=== PATIENT | male | born 1960 | race Hispanic/Latino ===

== ENCOUNTER 2017-12-22 15:34 | Emergency (ER) | payer OTHER ==
[2017-12-22] MEDS ORDERED: TORADOL IM ONE (16:08)
--- NOTE | 2017-12-22 17:03 | Emergency Department Report ---
ED Upper Extremity Inj HPI - General Chief Complaint: Extremity Problem,Nontraumatic Stated Complaint: LEFT ELBOW SWOLLEN Time Seen by Provider: 12/22/17 16:05 Source: patient Mode of arrival: Ambulatory Limitations: No Limitations - History of Present Illness Initial Comments: 57-year-old male with no significant past medical history presented to the hospital complaining of left elbow pain and swelling 6 days. Pain is 10/10 intensity, constant, worse with movement and palpation and greatest in the lateral part of the elbow. Patient states he woke up with the pain. 2 weeks prior he follow off a ladder landing on his left side and causing skin injury to left hand but did not have any left elbow pain at the time. No complaints of fever or more recent trauma. Denies previous history of gout or other joint discomfort. - Related Data Previous Rx's Medication Instructions Recorded Last Taken Type HYDROcodone/APAP 10-325 [[place] 1 each PO Q8H PRN #20 tablet 12/22/17 Unknown Rx 10-325 mg TAB] Ibuprofen [Motrin] 800 mg PO Q8HR PRN #30 tablet 12/22/17 Unknown Rx Allergies Allergy/AdvReac Type Severity Reaction Status Date / Time codeine Allergy Unknown Verified 08/11/13 02:01 ED Review of Systems ROS: Stated complaint: LEFT ELBOW SWOLLEN Other details as noted in HPI Comment: All other systems reviewed and negative ED Past Medical Hx - Past Medical History Previous Medical History?: No Additional medical history: Tetanus status up to date - Surgical History Past Surgical History?: Yes Hx Appendectomy: Yes Additional Surgical History: hernia repair, tonsillectomy - Social History Smoking Status: Current Every Day Smoker Substance Use Type: None - Medications Home Medications: Home Medications Medication Instructions Recorded Confirmed Last Taken Type HYDROcodone/APAP 10-325 [[place] 1 each PO Q8H PRN #20 tablet 12/22/17 Unknown Rx 10-325 mg TAB] Ibuprofen [Motrin] 800 mg PO Q8HR PRN #30 tablet 12/22/17 Unknown Rx ED Physical Exam - General Limitations: No Limitations - Other Other exam information: General: No limitations, patient is alert in no acute distress Head exam: Atraumatic, normocephalic Eyes exam: Normal appearance ENT: Moist mucous membrane, normal oropharynx Neck exam: Normal inspection, full range of motion, no meningismus nontender Respiratory exam: Clear to auscultation bilateral, no wheezes, rales, crackles Cardiovascular: Normal rate and rhythm, normal heart sounds Abdomen: Soft, nondistended, and nontender, with normal bowel sounds, no rebound, or guarding Extremity: Mild lateral left elbow swelling with tenderness at the lateral condyle and at the tenderness as well as tenderness at the tendon superior to the olecranon. No warmth or erythema noted. Full range of motion but painful with movement. 2+ radial pulse Back: Normal Inspection, full range of motion, no tenderness Neurologic: Alert, oriented x3, cranial nerves intact, no motor or sensory deficit Psychiatric: normal affect, normal mood Skin: Warm, dry, intact ED Course Vital Signs 12/22/17 12/22/17 15:41 16:15 Temperature 97.7 F Pulse Rate 87 Respiratory 18 Rate Blood Pressure 119/80 - Reevaluation(s) Reevaluation #1: 12/22/17 17:01 Patient was given Toradol for pain in the ED. He is driving ED Medical Decision Making - Radiology Data Radiology results: report reviewed FINAL REPORT EXAM: XR ELBOW 3+V LT HISTORY: Pain and swelling TECHNIQUE: 3 views left elbow PRIORS: None. FINDINGS: No fracture identified. No dislocation seen. No evidence of joint effusion. Joint spaces are within normal limits. IMPRESSION: Negative elbow series - Medical Decision Making Elbow x-ray negative. Patient be treated symptomatically for pain and anti- inflammatories. No signs of infection at this time gout and bursitis is still a possibility. Orthopedic follow-up would be advised. Sling provided for comfort and support - Differential Diagnosis gout, fracture, tendinitis, bursitis Critical Care Time: No Critical care attestation.: If time is entered above; I have spent that time in minutes in the direct care of this critically ill patient, excluding procedure time. ED Disposition Clinical Impression: Elbow pain, left Disposition: [id number] TO HOME OR SELFCARE Is pt being admited?: No Does the pt Need Aspirin: No Condition: Stable Instructions: Tendinitis (ED) Additional Instructions: Follow with orthopedist a further investigation as to the cause of elbow pain. This could be due to inflammation of the bursa, tendon, or joint. The ER treatment for all these conditions involves anti-inflammatories and pain medication as well as support with a sling. Return is symptoms worsen as indicated by your discharge instructions. Prescriptions: HYDROcodone/APAP 10-325 [[place] 10-325 mg TAB] 1 each PO Q8H PRN #20 tablet PRN Reason: Pain Ibuprofen [Motrin] 800 mg PO Q8HR PRN #30 tablet PRN Reason: Pain, Moderate (4-6) Referrals: PRIMARY CARE, [Primary Care Provider] - 3-5 Days K[facility]NG LA MD [Staff Physician] - 3-5 Days (orthopedic doctor) Time of Disposition: 17:35
[2017-12-22 18:58] VITALS: BP 146/104
== END 2017-12-22 18:57 | disposition home or self-care (01) ==
LOC: ED 15:34
DX: M25.522 Pain in left elbow (principal); F17.200 Nicotine dependence, unspecified, uncomplicated; Z88.6 Allergy status to analgesic agent
CPT/HCPCS: 73080; 96372; 99283; J1885